=== PATIENT | female | born 1980 | race Caucasian/White ===

== ENCOUNTER 2017-01-18 06:17 | Day surgery (SDC) | payer OTHER, BC ==
[~2017-01-18 06:17] MED LIST: Buffered Lidocaine 0.9% SYRIN* 5 ML/SYR SYRINGE INTRADERM ONE
[2017-01-18 06:24] LABS: Manual Entry Verification CAR0052; UR Preg Internal Control QC Line Present; UR Preg Kit Lot# 6090065
[2017-01-18] MEDS ORDERED: Clindamycin 900 MG IVPREMIX(* 900 MG/50 ML SDV IV ONE (06:30)
[2017-01-18] MEDS ORDERED: Buffered Lidocaine 0.9% SYRIN* 5 ML/SYR SYRINGE ONE (06:30)
[2017-01-18] MEDS ORDERED: Bupivacaine 0.5% SDV PF* 30 ML VIAL ONE ×2 (07:06→09:39)
[2017-01-18] MEDS ORDERED: Midazolam* 1 MG/ML 2 ML VIAL (2 MG) ONE (07:25)
[2017-01-18] MEDS ORDERED: fentaNYL* 50 MCG/ML 2 ML VIAL (100 MCG VIAL) ONE ×3 (07:25→10:50)
[2017-01-18] MEDS ORDERED: Rocuronium* 10 MG/ML VIAL ONE (07:44)
[2017-01-18] MEDS ORDERED: Ketorolac INJ* 30 MG/ML 1 ML VIAL ONE (07:54)
[2017-01-18] MEDS ORDERED: Ondansetron INJ* 2 MG/ML VIAL ONE ×2 (07:54→09:54)
[2017-01-18] MEDS ORDERED: Dexamethasone IV* 4 MG/ML 1 ML (4 MG) ONE (07:54)
[2017-01-18] MEDS ORDERED: Lidocaine 2% PF * 5 ML VIAL ONE (07:54)
[2017-01-18] MEDS ORDERED: Propofol* 10 MG/ML 20 ML BTL IV PUSH ONE (07:54)
[2017-01-18] MEDS ORDERED: Famotidine IV* 10 MG/ML 2 ML (20 mg) ONE (07:54)
[2017-01-18] MEDS ORDERED: EPHEDrine (Pressors)* 50 MG/ML VIAL ONE (08:31)
[2017-01-18] MEDS ORDERED: fentaNYL* 50 MCG/ML 2 ML VIAL (100 MCG VIAL) IV PRN (10:14)
[2017-01-18] MEDS ORDERED: Ondansetron INJ* 2 MG/ML VIAL IV PRN (10:14)
[2017-01-18] MEDS ORDERED: HYDROcodone/ACETAMIN 5-325 MG* 1 TAB PO PRN (10:14)
[2017-01-18] MEDS ORDERED: PROCHLORPERAZINE INJ 5 MG/ML 2 ML VIAL IV PRN (10:14)
[2017-01-18] MEDS ORDERED: Acetaminophen TAB* 325 MG PO PRN (10:14)
[2017-01-18] MEDS ORDERED: DiMENhydriNATE IV* 50 MG/ML VIAL IV PUSH PRN (10:14)
[2017-01-18] MEDS ORDERED: oxyCODONE TAB* 5 MG TAB ONE (11:04)
[2017-01-18 11:28] VITALS: BP 120/83
--- NOTE | 2017-01-19 07:32 | OP ---
DATE OF OPERATION: 01/18/17 - [facility] DATE OF : 76 ATTENDING SURGEON: Christian Sierra MD MEDICAL OBSERVER: Mariah Velasco PA-C PRE-OP DIAGNOSIS: Failed osteochondral allograft, left talus lateral dome. POST-OP DIAGNOSIS: Failed osteochondral allograft, left talus lateral dome. OPERATIVE PROCEDURE: Revision allograft, left ankle. DESCRIPTION OF PROCEDURE: The patient was taken to the operating room where a longitudinal incision was made over the distal fibula. Approximately in the soft tissues anterior to the fibula, we located an area that appeared to be the previous repair of the superficial peroneal nerve. There appeared to be a thickened neuroma just past the repair. So we transected this proximally, tying off the nerve with 3-0 Ethibond and burying this in the subcu tissue with a Jose needle through the interosseous membrane. We then took down the anterior and distal capsule directly off of the fibula. We placed a 0.062 C- wire in the fibula and the lateral talus and then the retractor was used to sublux the talus anteriorly. This allowed us to fully visualize the talar defect. The screw was removed and a small hook osteotome to remove the allograft. We then freshened the bed with a 2-mm power bur. We harvested a matching graft from the lateral dome of the talus, fresh allograft. This was placed into the defect after some custom shaping. We pinned this with a lag screw, 2.7 mm x 28 mm screw. We then irrigated thoroughly. The capsule was brought back up to the anterior fibula with two Mark-Gatito sutures of #1 Vicryl taken through the fibula bone, subcu closure of 2-0 Vicryl and nylon followed with a plaster splint. [id number]/[facility] #: [id number] ROBERT
--- NOTE | 2017-01-20 10:32 | RAD ---
INDICATION: Osteochondritis desiccated LEFT ankle. COMPARISON: November 30, 2016 CT. TECHNIQUE: 9 seconds fluoroscopy. FINDINGS: Spot image documents a solitary fixation screw traversing the bone graft at the superior lateral margin of the dome of the talus grossly unchanged in position in the lateral projection compared with the November 30, 2016 CT. IMPRESSION: Procedural fluoroscopy. CPT II Codes: 6045F
== END 2017-01-18 11:14 | disposition home or self-care (01) ==
LOC: OR 06:17
PROVIDERS: ATTEND Orthopaedic Surgery
DX: M93.272 Osteochondritis dissecans, left ankle and joints of left foot (principal); G89.18 Other acute postprocedural pain; M89.8X7 Other specified disorders of bone, ankle and foot; I10 Essential (primary) hypertension
CPT/HCPCS: 76000; 81025; 88300; 88304; 88311; A9270-GY; C1713; C1776; J1100; J1885; J2250; J2405; J2704; J3010

== ENCOUNTER 2017-09-27 07:02 | Day surgery (SDC) | payer OTHER ==
[~2017-09-27 07:02] MED LIST changes: +Dexamethasone IV* 4 MG/ML 1 ML (4 MG) IV SLOW PU ONE; +Famotidine IV* 10 MG/ML 2 ML (20 mg) IV ONE
[2017-09-27] MEDS ORDERED: Clindamycin 900 MG IVPREMIX(* 900 MG/50 ML SDV IV ONE (07:09)
[2017-09-27] MEDS ORDERED: Famotidine IV* 10 MG/ML 2 ML (20 mg) ONE (07:09)
[2017-09-27] MEDS ORDERED: Buffered Lidocaine 0.9% SYRIN* 5 ML/SYR SYRINGE ONE (07:09)
[2017-09-27] MEDS ORDERED: Dexamethasone IV* 4 MG/ML 1 ML (4 MG) ONE (07:09)
[2017-09-27] MEDS ORDERED: fentaNYL* 50 MCG/ML 2 ML VIAL (100 MCG VIAL) ONE ×3 (08:44→10:43)
[2017-09-27] MEDS ORDERED: Midazolam* 1 MG/ML 2 ML VIAL (2 MG) ONE (08:45)
[2017-09-27] MEDS ORDERED: Propofol* 10 MG/ML 20 ML BTL IV PUSH ONE (08:45)
[2017-09-27] MEDS ORDERED: Lidocaine 2% PF * 5 ML VIAL ONE (08:45)
[2017-09-27] MEDS ORDERED: HYDROcodone/ACETAMIN 5-325 MG* 1 TAB PO PRN (08:49)
[2017-09-27] MEDS ORDERED: PROCHLORPERAZINE INJ 5 MG/ML 2 ML VIAL IV PRN (08:49)
[2017-09-27] MEDS ORDERED: Ketorolac INJ* 30 MG/ML 1 ML VIAL IV PRN (08:49)
[2017-09-27] MEDS ORDERED: Naloxone* 0.4 MG/ML 1 ML VIAL IV PRN (08:49)
[2017-09-27] MEDS ORDERED: DiMENhydriNATE IV* 50 MG/ML VIAL IV PUSH PRN (08:49)
[2017-09-27] MEDS ORDERED: Bupivacaine 0.5% SDV PF* 10-30ML VIAL ONE (08:59)
[2017-09-27] MEDS ORDERED: Ondansetron INJ* 2 MG/ML VIAL ONE (09:26)
[2017-09-27] MEDS ORDERED: Ketorolac INJ* 30 MG/ML 1 ML VIAL ONE (10:17)
[2017-09-27] MEDS ORDERED: oxyCODONE/Acetamin 5/325 MG* TAB ONE (10:25)
[2017-09-27] MEDS: oxyCODONE/Acetamin 5/325 MG* TAB PO PRN ×2 (10:27→10:28)
[2017-09-27] MEDS: fentaNYL* 50 MCG/ML 2 ML VIAL (100 MCG VIAL) IV PRN ×4 (10:28→11:07)
[2017-09-27 11:16] VITALS: BP 127/87
--- NOTE | 2017-09-28 13:33 | OP ---
AMENDED REPORT NOW INCLUDES DATE OF OPERATION - ESIGNED BEFORE ADJUSTMENTS * DATE OF OPERATION: 09/27/17 - [facility] DATE OF : 76 SURGEON: Christian Sierra MD ANESTHESIOLOGIST: Geo Perry MD ANESTHESIA: General PRE-OP DIAGNOSIS: Painful hardware, left talus. POST-OP DIAGNOSIS: Painful hardware, left talus. OPERATIVE PROCEDURE: Removal of hardware, left ankle. DESCRIPTION OF PROCEDURE: The patient was taken to the operating room, where lateral positioning was used. We opened up longitudinally along the previous incision and then reflected the peroneals posterior away from the fibula. By entering the deep part of the retinaculum, we were able to enter the posterolateral tibiotalar joint where the mini frag screw was identified and removed. We then repaired the retinaculum to the superficial corner of the fibula using through bone sutures and 2-0 Vicryl. We then closed the subcu tissue with 2-0 Vicryl, nylon for the skin, and a compression dressing. Plaster splint applied. [id number]/[facility] #: [id number] MTDD
== END 2017-09-27 11:30 | disposition home or self-care (01) ==
LOC: OR 07:02
PROVIDERS: ATTEND Orthopaedic Surgery
DX: T84.84XA Pain due to internal orthopedic prosthetic devices, implants and grafts, initial encounter (principal); Y83.1 Surgical operation with implant of artificial internal device as the cause of abnormal reaction of the patient, or of later complication, without mention of misadventure at the time of the procedure; F41.9 Anxiety disorder, unspecified; I10 Essential (primary) hypertension
CPT/HCPCS: 81025; 88300; A9270-GY; J1100; J1885; J2250; J2405; J2704; J3010

== ENCOUNTER → 2018-03-31 05:58 | Day surgery (SDC) | payer BC, OTHER ==
[~2018-03-31 05:58] MED LIST changes: +Clindamycin 900 MG IVPREMIX(* 900 MG/50 ML SDV IV ONE; -Dexamethasone IV* 4 MG/ML 1 ML (4 MG) IV SLOW PU ONE; +Dexamethasone IV* 4 MG/ML 1 ML (4 MG) ONE; +Famotidine IV* 10 MG/ML 2 ML (20 mg) ONE; +KETAMINE HCL* 50 MG/ML 10 ML VIAL ONE; +Ketorolac INJ* 30 MG/ML 1 ML VIAL ONE; +Lidocaine 2% PF * 5 ML VIAL ONE; +Midazolam* 1 MG/ML 5 ML VIAL (5 MG) ONE; +Naloxone* 0.4 MG/ML 1 ML VIAL IV PRN; +Ondansetron INJ* 2 MG/ML VIAL IV PRN; +Ondansetron INJ* 2 MG/ML VIAL ONE; +Propofol* 10 MG/ML 20 ML BTL IV PUSH ONE; +ROPIVACAINE 5 MG/ML 30 ML BTL (0.5%) ONE; +fentaNYL* 50 MCG/ML 2 ML VIAL (100 MCG VIAL) IV PRN; +fentaNYL* 50 MCG/ML 2 ML VIAL (100 MCG VIAL) ONE; +oxyCODONE/Acetamin 5/325 MG* TAB PO PRN
--- NOTE | 2018-03-31 08:25 | OP ---
Operative Report - Blank - Operative Report Date of Operation: 03/31/18 Note: PATIENT: Mike Cruz DATE OF : 1980 DATE OF SURGERY: 03/31/2018 SURGEON: Reilly Christine MD RANGE MANAGER: SRIDEVI Soto, whos assistance was necessary for positioning, retraction, help with instrumentation, and closure. ANESTHESIOLOGIST: Dr. Comer PREOPERATIVE DIAGNOSIS: Left ankle synovitis status post talar allograft POSTOPERATIVE DIAGNOSIS: Left ankle synovitis and cartilage fraying and hypertrophy status post talar allograft OPERATION: Left ankle arthroscopy with extensive debridement. ANESTHESIA: GETA IMPLANTS: none TOURNIQUET TIME: Less than one hour with a well-padded thigh tourniquet at 250 mmHg SPECIMENS: none ESTIMATED BLOOD LOSS: minimal COMPLICATIONS: none STATUS: Stable from the operating room to the recovery room and then home. INDICATIONS FOR PROCEDURE: Mike has had multiple prior left ankle surgeries, including a bulk talar allograft. She has persistent pain at the ankle. Both operative and non operative treatment alternatives were reviewed. Further, the nature and risks of surgery were reviewed in careful detail, in the office as well as the pre- operative holding area. Our discussions regarding the risks of surgery included , but were not limited to, infection, wound problems, nerve injury, neuroma, RSD , persistent symptoms, blood clot, failure of the surgery, and even the remote chance of catastrophic complication, including loss of limb. DESCRIPTION OF PROCEDURE: The patient was seen in the preoperative holding unit and informed written consent was obtained. The appropriate extremity was marked. The patient was then brought to the operating room and carefully positioned on the operating room table. Anesthesia was induced. All bony prominences were padded with great care. A well-padded thigh tourniquet was placed. A chlorhexidine based pre- scrub was performed followed by a chloraprep prep and drape in standard sterile fashion. A surgical safety pause was then conducted in which we confirmed the appropriate patient, extremity, planned procedure, availability of equipment, indication and administration of prophylactic antibiotics, and DVT prophylaxis in the form of a compression boot on the non-surgical extremity. An Esmarch exsanguination of the limb was performed and the tourniquet inflated. The leg was positioned in the noninvasive ankle arthroscopy leg castillo setup. I began by establishing the anteromedial portal. I utilized a spinal needle for this. Great care was taken to protect the superficial neurovascular structures. Under direct visualization, I then established an anterolateral portal. Great care was taken to protect the superficial peroneal nerve. I utilized the full radius shaver to remove a considerable amount of synovitis from the anterior aspect of the ankle joint. This was carefully removed to give a nice view of the ankle joint. There is a considerable amount of inflamed synovium at the syndesmosis, which I debrided with the full-radius shaver. This revealed fraying and hypertrophy of the cartilage at the anterior aspect of the talar allograft. The posterior and medial allograft/ketchikan talus interface looked well healed without any irregularity. I debrided the hypertrophied and frayed cartilage at the anterior aspect of the graft. I debrided down to a smooth interface. Upon probing of the graft, I did not find any loose areas or areas where I was able to insert the probe deep into the graft. I then again utilized the full radius shaver to remove all additional debris from the ankle joint. I removed the arthroscopic equipment and closed the portals utilizing 3-0 nylon suture. At this point, a sterile dressing was applied. The patient was then awakened from anesthesia and transferred to the recovery room in stable condition. There were no complications. All needle and sponge counts were correct at the end of the case. ATTESTATION: I attest I was present and scrubbed and performed the critical portions of the procedure myself. POSTOPERATIVE PLAN: Follow up will be in two weeks for likely suture removal.
[2018-03-31 09:48] VITALS: BP 132/94
== END | disposition home or self-care (01) ==
LOC: OR 05:58
PROVIDERS: ATTEND Orthopaedic Surgery
DX: M93.272 Osteochondritis dissecans, left ankle and joints of left foot (principal); M65.872 Other synovitis and tenosynovitis, left ankle and foot; M76.72 Peroneal tendinitis, left leg; I10 Essential (primary) hypertension; K21.9 Gastro-esophageal reflux disease without esophagitis; Z87.440 Personal history of urinary (tract) infections; Z87.891 Personal history of nicotine dependence; F41.9 Anxiety disorder, unspecified
CPT/HCPCS: 81025; J1100; J1885; J2250; J2405; J2704; J2795; J3010